=== PATIENT | male | born 1955 | race Caucasian/White ===

== ENCOUNTER 2017-11-28 10:44 | Emergency (ER) | payer OTHER, SELFPAY ==
--- NOTE | 2017-11-28 10:58 | DI.RAD.S_ITS ---
PROCEDURE: XR CHEST 2V INDICATIONS: Right-sided chest pain TECHNIQUE: 2 views of the chest were acquired. COMPARISON: [facility], CHEST 2 VIEW, 04/11/2014, 1:40. [facility], CHEST 2 VIEW, 10/28/2012, 5:59. [facility], CHEST 2 VIEW, 02/02/2010, 8:31. [facility], CHEST 2 VIEW, 01/25/2010, 5:48. [facility], CHEST 2 VIEW, 01/22/2010, 8:45. [facility], CHEST 2 VIEW, 01/20/2010, 7:36. [facility], CHEST 2 VIEW, 11/22/2009, 7:33. [facility], CHEST 1 VIEW, 06/09/2006, 14:54. FINDINGS: Surgical changes and devices: None. Lungs and pleura: No pleural effusions or pneumothorax. Lungs are clear. Mediastinum: Mediastinal contours are normal. Heart size is normal. Bones and chest wall: No suspicious bony abnormalities. Soft tissues appear unremarkable. IMPRESSION: No acute cardiopulmonary disease process. Dictated by: Megan Yeung MD, PhD on 11/28/2017 at 11:11 Approved by: Megan Yeung MD, PhD on 11/28/2017 at 11:11
[2017-11-28 11:15] VITALS: BP 111/71; PULSE 62; RESP 14; TEMP 36.7; O2SAT 98; BMI 26.7
--- NOTE | 2017-11-28 11:18 | ED.CHESTPAIN ---
HPI - Chest Pain General Chief Complaint: Chest Pain Stated Complaint: sharp pain near ribs rt side Time Seen by Provider: 11/28/17 10:58 Source: patient Mode of arrival: ambulatory Limitations: no limitations History of Present Illness HPI narrative: 62-year-old male here for evaluation of a couple days of right upper quadrant abdominal pain. Patient states that he has had pain for the past couple days. States it is worse with palpation of his lower ribs and his right upper quadrant. No trauma. No rashes. No problems with breathing. States that he did have problems sleeping last night because of it. Patient still has his gallbladder. No cough. No fevers. Related Data Home Medications Medication Instructions Recorded Confirmed Fish Oil 1 cap PO DAILY 11/28/17 11/28/17 aspirin 81 mg PO DAILY 11/28/17 11/28/17 lovastatin 20 mg PO BEDTIME 11/28/17 11/28/17 multivitamin 1 tab PO DAILY 11/28/17 11/28/17 Previous Rx's Medication Instructions Recorded levothyroxine [Synthroid] 125 mcg PO QDAY #90 tab 08/05/17 Allergies Allergy/AdvReac Type Severity Reaction Status Date / Time No Known Allergies Allergy Uncoded 08/13/17 11:59 Review of Systems Constitutional Denies fever(s) and Denies headache(s) ENT Ears, Nose, Mouth, and Throat: Denies vertigo, Denies dizziness and Denies headache(s) Cardiovascular Reports chest pain (Right lower chest), Denies irregular heart rhythm, Denies palpitations and Denies dyspnea Respiratory Denies cough, Reports pain on inspiration and Denies dyspnea Gastrointestinal Gastrointestinal: Reports abdominal pain (Right upper quadrant), Denies constipation, Denies cramping, Denies diarrhea, Denies nausea and Denies vomiting Genitourinary Denies dysuria and Denies flank pain Musculoskeletal Denies myalgias and Denies arthralgias Integumentary/Breasts Denies lesions and Denies rash Neurologic Denies confusion, Denies vertigo, Denies dizziness and Denies headache(s) Psychiatric Denies confusion Endocrine Denies palpitations Hematologic/Lymphatic Denies easy bleeding and Denies easy bruising [facility] Medical History GERD (gastroesophageal reflux disease) (Chronic Unknown) Anxiety (Chronic Unknown) Gout (Chronic Unknown) Pure hypercholesterolemia (Chronic ~11/2015) Hypothyroidism (Chronic ~06/2015) Excessive daytime sleepiness (Chronic ~10/2016) Chronic right shoulder pain (Chronic ~10/2016) Pure hypercholesterolemia (Chronic 11/20/15) History of gastroesophageal reflux (GERD) (Resolved ~2009) Surgical History Status post knee surgery (Chronic) S/P arthroscopic knee surgery (Resolved ~2015) Family History Father Diabetes mellitus Social History Smoking Status: Former smoker Tobacco: How many years used: 20 alcohol intake: current substance use type: does not use well-balanced diet: other caffeine: Yes additional social history: severe hearing loss Comment: Reviewed patient's past medical history family history surgical history and social history Exam Initial Vital Signs Initial Vital Signs: Vital Signs Temperature 98.0 F 11/28/17 11:15 Pulse Rate 62 11/28/17 11:15 Respiratory Rate 14 11/28/17 11:15 Blood Pressure 111/71 11/28/17 11:15 Pulse Oximetry 98 11/28/17 11:15 Const General: cooperative, healthy appearing, comfortable, well developed, well groomed and No acute distress Orientation: alert, awake and oriented x3 HENMT Head: normal to inspection, normocephalic and atraumatic Chest Other: Patient's pain is reproducible with palpation of the right lower chest wall over the lower portion of the ribs as they transition anteriorly and and resect with the sternum. Resp Effort & Inspection: normal respiratory effort Auscultation: clear to auscultation bilaterally Cardio Rate: regular rate Rhythm: regular rhythm GI Inspection: non-distended Palpation: soft, No firm, No guarding and tender (Right upper quadrant without rebound or guarding negative Pena sign) Back/Spine/Pelvis Back: No CVA tenderness Skin Lesions: no lesions Rashes: no rashes Neuro General: alert, awake and oriented x3 Cognition: normal cognition Speech: speech normal Gait: normal gait Motor: muscle tone normal throughout Sensory Exam: no sensory deficits noted Extrem General: normal to inspection, full ROM and capillary refill normal Psych Appearance: grossly normal and well kempt Course Orders Ordered: ED Orders 11/28/17 10:58 XR chest 2V Stat 11/28/17 11:58 US abdomen complete Stat 11/28/17 12:05 Complete Blood Count AUTO DIFF Stat Comprehensive Metabolic Panel Stat Lipase Stat Vital Signs - 8 hr 11/28/17 11:15 11/28/17 14:25 Temperature 98.0 F Pulse Rate 62 65 Respiratory Rate 14 15 Blood Pressure 111/71 111/74 Pulse Oximetry 98 100 MDM - Chest Pain Lab Data Attestation: I reviewed the patient's lab results. Result diagrams: 11/28/17 12:05 11/28/17 12:05 Lab Results 11/28/17 11/28/17 Range/Units 12:05 12:05 WBC 9.1 (4.5-11.0) X10^3/uL RBC 4.92 (4.5-5.9) X10^6/uL Hgb 15.3 (13.5-17.5) g/dL Hct 44.0 (41-53) % MCV 89.5 (80-100) fL MCH 31.1 (26-34) PG MCHC 34.7 (30-36) % RDW 13.1 (11.6-14.8) % Plt Count 223 (150-400) X10^3/uL Neut % (Auto) 63.6 (50-75) % Lymph % (Auto) 27.1 (25-40) % [place] % (Auto) 5.6 (3-14) % Eos % (Auto) 3.0 (2-4) % Baso % (Auto) 0.7 (0-2) % Neut # (Auto) 5800 (9017-1712) /uL Sodium 142 (137-145) mmol/L Potassium 4.3 (3.4-5.1) mmol/L Chloride 102 (98-107) mmol/L Carbon Dioxide 32 (22-32) mmol/L BUN 16 (9-20) mg/dL Creatinine 1.00 (0.66-1.25) mg/dL Estimated GFR > 60.0 (>60) mL/min BUN/Creatinine Ratio 16.0 (6-22) Glucose 97 (80-110) mg/dL Calcium 9.2 (8.4-10.2) mg/dL Total Bilirubin 0.5 (0.2-1.3) mg/dL AST 34 (17-59) IU/L ALT 35 (21-72) IU/L Alkaline Phosphatase 52 (38-126) U/L Total Protein 7.3 (6.3-8.2) g/dL Albumin 4.4 (3.5-5.0) g/dL Globulin 2.9 (1.7-4.1) g/dL Albumin/Globulin Ratio 1.5 (1.0-2.8) Lipase 178 (23-300) U/L Imaging Data Chest x-ray: Radiologist's impression: PROCEDURE: XR CHEST 2V INDICATIONS: Right-sided chest pain TECHNIQUE: 2 views of the chest were acquired. COMPARISON: [facility], CHEST 2 VIEW, 04/11/2014, 1:40. [facility], CHEST 2 VIEW, 10/28/2012, 5:59. [facility], CHEST 2 VIEW, 02/02/2010, 8:31. [facility], CHEST 2 VIEW, 01/25/2010, 5:48. [facility], CHEST 2 VIEW, 01/22/2010, 8:45. [facility], CHEST 2 VIEW, 01/20/2010, 7:36. [facility], CHEST 2 VIEW, 11/22/2009, 7:33. [facility], CHEST 1 VIEW, 06/09/2006, 14:54. FINDINGS: Surgical changes and devices: None. Lungs and pleura: No pleural effusions or pneumothorax. Lungs are clear. Mediastinum: Mediastinal contours are normal. Heart size is normal. Bones and chest wall: No suspicious bony abnormalities. Soft tissues appear unremarkable. IMPRESSION: No acute cardiopulmonary disease process. Dictated by: Megan Yeung MD, PhD on 11/28/2017 at 11:11 Approved by: Megan Yeung MD, PhD on 11/28/2017 at 11:11 US - abdomen: Radiologist's impression: PROCEDURE: US ABDOMEN COMPLETE INDICATIONS: Right upper quadrant pain concern for GB path TECHNIQUE: Real-time scanning was performed of the abdominal and retroperitoneal organs, with image documentation. COMPARISON: None. FINDINGS: Liver: Liver is normal in size and homogeneous in echotexture. Gallbladder: Gallbladder appears clear with normal wall thickness. Biliary ducts: Intrahepatic bile ducts are non-dilated. Extrahepatic bile duct caliber measures 5 mm. Normal is 6-7 mm or less in diameter, or 10 mm or less post-cholecystectomy. Pancreas: Visualized portions of the pancreas are sonographically normal. Tail is obscured. Spleen: Spleen is normal in size and homogeneous in echotexture. Kidneys: Kidneys are normal in size and echotexture. Right kidney measures 11.1 cm long; left kidney measures 10.7 cm long. No hydronephrosis or nephrolithiasis. No solid masses. Aorta: Visualized aorta is normal in caliber at less than 3 cm. Iliacs: Iliac vessels are obscured by bowel gas IVC: Intrahepatic inferior vena cava is patent. Miscellaneous: No free abdominal fluid. IMPRESSION: 1. No apparent hepatobiliary abnormality. 2. Kidneys showed no obstruction. 3. Tail of pancreas and iliac vessels are obscured by bowel gas. Dictated by: Lawson López M.D. on 11/28/2017 at 14:03 Approved by: Lawson López M.D. on 11/28/2017 at 14:04 [facility] Narrative Medical decision making narrative: Chest x-ray is unremarkable. Patient declined the EKG. Right upper quadrant ultrasound unremarkable. Labs unremarkable. Patient does not have a rash over the area however we did discuss the possibility of shingles. He did have reproducible tenderness over his lower ribs and right upper quadrant. I do suspect that this is a costochondritis/musculoskeletal etiology. No signs of gallbladder pathology. Hold on further workup for now. Patient was asking to go home. He was given return precautions. He expressed understanding and agreement with plan. Discharge Plan Departure Patient Disposition: Home, Self-Care Clinical Impression: Anterior chest wall pain Discharge Date/Time: 11/28/17 14:26 Interventions: ED Discharge Assessment Last Done: 11/28/17 14:25 Instructions: DI for Atypical Chest Pain Activity Restrictions/Additional Instructions: Take the anti-inflammatories likely discussed. If you start to develop a rash over this area in the next couple days you do need to be seen again. Call your primary care doctor for a follow-up. Return to the emergency department for any new or worsening symptoms Prescriptions: No Action levothyroxine [Synthroid] 125 MCG tablet 125 mcg PO QDAY Qty: 90 RF: 3 lovastatin 20 MG tablet 20 mg PO BEDTIME RF: 0 aspirin 81 mg Tablet,Delayed Release (Dr/Ec) 81 mg PO DAILY RF: 0 Fish Oil 1 cap PO DAILY RF: 0 multivitamin 1 tab PO DAILY RF: 0
--- NOTE | 2017-11-28 11:58 | DI.US.S_ITS ---
PROCEDURE: US ABDOMEN COMPLETE INDICATIONS: Right upper quadrant pain concern for GB path TECHNIQUE: Real-time scanning was performed of the abdominal and retroperitoneal organs, with image documentation. COMPARISON: None. FINDINGS: Liver: Liver is normal in size and homogeneous in echotexture. Gallbladder: Gallbladder appears clear with normal wall thickness. Biliary ducts: Intrahepatic bile ducts are non-dilated. Extrahepatic bile duct caliber measures 5 mm. Normal is 6-7 mm or less in diameter, or 10 mm or less post-cholecystectomy. Pancreas: Visualized portions of the pancreas are sonographically normal. Tail is obscured. Spleen: Spleen is normal in size and homogeneous in echotexture. Kidneys: Kidneys are normal in size and echotexture. Right kidney measures 11.1 cm long; left kidney measures 10.7 cm long. No hydronephrosis or nephrolithiasis. No solid masses. Aorta: Visualized aorta is normal in caliber at less than 3 cm. Iliacs: Iliac vessels are obscured by bowel gas IVC: Intrahepatic inferior vena cava is patent. Miscellaneous: No free abdominal fluid. IMPRESSION: 1. No apparent hepatobiliary abnormality. 2. Kidneys showed no obstruction. 3. Tail of pancreas and iliac vessels are obscured by bowel gas. Dictated by: Lawson López M.D. on 11/28/2017 at 14:03 Approved by: Lawson López M.D. on 11/28/2017 at 14:04
[2017-11-28 12:29] LABS: Alanine Aminotransferase 35 IU/L (21-72); Albumin 4.4 g/dL (3.5-5.0); Albumin Globulin Ratio 1.5 (1.0-2.8); Alkaline Phosphatase 52 U/L (38-126); Aspartate Aminotransferase 34 IU/L (17-59); Bilirubin Total 0.5 mg/dL (0.2-1.3); Blood Urea Nitrogen 16 mg/dL (9-20); Calcium 9.2 mg/dL (8.4-10.2); Carbon Dioxide 32 mmol/L (22-32); Chloride 102 mmol/L (98-107); Estimated Glomerular Filt Rate > 60.0 mL/min (>60); Globulin 2.9 g/dL (1.7-4.1); Glucose 97 mg/dL (80-110); HEMOLYSIS < 15 (0-50); Lipase 178 U/L (23-300); Potassium 4.3 mmol/L (3.4-5.1); Sodium 142 mmol/L (137-145); Total Protein 7.3 g/dL (6.3-8.2)
[2017-11-28 12:33] LABS: Add Manual Diff / Slide Review NO; Basophils Percent Auto 0.7 % (0-2); Hemoglobin 15.3 g/dL (13.5-17.5); Lymphocytes Percent Auto 27.1 % (25-40); Mean Corpuscular HGB Conc 34.7 % (30-36); Mean Corpuscular Hemoglobin 31.1 PG (26-34); Mean Corpuscular Volume 89.5 fL (80-100); Monocytes Percent Auto 5.6 % (3-14); Neutrophils Absolute Auto 5800 /uL (3000-5900); Neutrophils Percent Auto 63.6 % (50-75); Platelet Count 223 X10^3/uL (150-400); Red Blood Cell Count 4.92 X10^6/uL (4.5-5.9); Red Cell Distribution Width 13.1 % (11.6-14.8); White Blood Cell Count 9.1 X10^3/uL (4.5-11.0)
[2017-11-28 14:25] VITALS: BP 111/74; PULSE 65; RESP 15; O2SAT 100
== END 2017-11-28 14:26 | disposition home or self-care (01) ==
PROVIDERS: Emergency Provider Emergency Medicine; PCP Family Medicine
DX: R07.89 Other chest pain (principal)
CPT/HCPCS: 36591; 71046; 76700; 80053; 83690; 85025; 99282; 99284

== ENCOUNTER → 2018-12-03 13:25 | Outpatient (CLI) | payer OTHER, SELFPAY ==
[2018-12-03 13:51] LABS: BUN Creatinine Ratio 12.7 (6-22); Blood Urea Nitrogen 14 mg/dL (9-20); Calcium 8.8 mg/dL (8.4-10.2); Carbon Dioxide 29 mmol/L (22-32); Chloride 103 mmol/L (98-107); Estimated Glomerular Filt Rate > 60.0 mL/min (>60); Glucose 84 mg/dL (80-110); HEMOLYSIS < 15 (0-50); Sodium 140 mmol/L (137-145)
[2018-12-03 14:08] LABS: Free T3, Triiodothyronine Free 4.53 pg/mL (2.77-5.27); Free T4, Direct Thyroxine 1.11 ng/dL (0.78-2.19)
[2018-12-03 14:22] LABS: Prostate Specific Antigen Scrn 1.26 ng/mL (0.1-4.0); Thyroid Stimulating Hormone 5.97 uIU/mL (0.47-4.68)
[2018-12-03 18:06] LABS: Vitamin D 25 Hydroxy (D3) 31.8 ng/mL (30.0-100.0)
== END ==
PROVIDERS: PCP Student in an Organized Health Care Education/Training Program; Visit Provider Student in an Organized Health Care Education/Training Program
DX: E03.9 Hypothyroidism, unspecified (principal); E78.00 Pure hypercholesterolemia, unspecified; Z12.5 Encounter for screening for malignant neoplasm of prostate; E55.9 Vitamin D deficiency, unspecified
CPT/HCPCS: 36415; 80048; 82306; 84439; 84443; 84481; G0103

== ENCOUNTER → 2019-01-09 12:38 | Outpatient (CLI) | payer OTHER, SELFPAY ==
--- NOTE | 2019-01-09 13:24 | DI.MRI.S_ITS ---
PROCEDURE: MR KNEE LT WO CON INDICATIONS: Unspecified internal derangement of left knee. History of prior knee surgery in 1989 and 2015. TECHNIQUE: Noncontrast sagittal PD fast spin echo and T2 fast spin echo with fat saturation, sagittal 3-D FLASH with fat saturation; coronal T1 spin echo and PD fast spin echo with fat saturation, and axial PD fast spin echo with fat saturation through the knee. COMPARISON: [facility], CR, XR KNEE ARTHRITIC SERIES LT, 12/31/2018, 9:27. [facility], MR, KNEE WITHOUT CONTRAST, 05/14/2016, 8:12. FINDINGS: Image quality: Excellent. Menisci: As before, there is truncation of the free edge of the lateral meniscal body and posterior horn. Linear horizontal high T2 signal intensity traverses the anterior horn lateral meniscus, demonstrating superior articular surface extension, as before. Linear oblique high T2 signal intensity traverses the posterior horn lateral meniscus, demonstrating inferior articular surface extension, as before. There is a babatunde-meniscal cyst at the anterolateral aspect of the lateral meniscus, the largest of which is within the lateral aspect of the infrapatellar fat pad, measuring roughly 44 mm craniocaudal by 25 mm anteroposterior by 22 mm transverse. The medial meniscus is within normal limits. Cruciate ligaments: The anterior and posterior cruciate ligaments appear intact. Medial structures: The medial collateral ligament appears intact. Visualized portions of the pes anserinus tendons appear normal. No abnormal bursal fluid. Lateral structures: The lateral collateral ligament, long and short heads of the biceps femoris tendon appear intact. The popliteus tendon appears normal. Iliotibial band appears normal. Anterior structures: The quadriceps and patellar tendons appear intact. Patellar alignment is normal. No femoral trochlear dysplasia or ventral trochlear prominence. Mild edema within the infrapatellar fat pad. Bones and cartilage: No bone marrow contusions or fractures. There is mild tricompartmental periarticular osteophyte formation. Mild diffuse articular cartilage loss overlies the weightbearing aspects of the medial femoral condyle and medial tibial plateau. Moderate diffuse articular cartilage loss overlies the weightbearing aspects of the lateral femoral condyle and lateral tibial plateau. There is a superimposed full-thickness region of articular cartilage loss overlying the posterior weightbearing aspect of the lateral femoral condyle measuring 4 mm anteroposterior. Moderate cartilage loss overlies the patellar apex. Joint space: There is physiologic knee joint fluid. No Crowder's cyst. Normal appearing synovial plicae are incidentally noted. IMPRESSION: 1. No significant change in appearance of lateral meniscus. However, there is a new perimeniscal cyst adjacent to the lateral meniscus as described above, which demonstrates mild surrounding edema within the infrapatellar fat-pad. 2. Tricompartmental osteoarthritis with associated articular cartilage loss as described above. 3. Findings which would be consistent with iliotibial band syndrome in the appropriate clinical setting. Dictated by: Randell Sheppard M.D. on 01/11/2019 at 8:16 Approved by: Randell Sheppard M.D. on 01/11/2019 at 8:38
== END ==
PROVIDERS: PCP Student in an Organized Health Care Education/Training Program; Visit Provider Orthopaedic Surgery
DX: M23.92 Unspecified internal derangement of left knee (principal); M23.042 Cystic meniscus, anterior horn of lateral meniscus, left knee; M17.12 Unilateral primary osteoarthritis, left knee
CPT/HCPCS: 73721

== ENCOUNTER 2019-05-10 03:30 | Emergency (ER) | payer OTHER, SELFPAY ==
--- NOTE | 2019-05-10 03:32 | ED_ITS ---
HPI - Extremity Problem General Chief complaint: Extremity Problem,Nontraumatic Stated complaint: infected left foot sgy mar 23 Time Seen by Provider: 05/10/19 03:32 Source: patient Mode of arrival: Ambulatory Limitations: no limitations History of Present Illness HPI Narrative: 63-year-old male nonsmoker with history of hypothyroid presents with gradually worsening L foot pain for the past week or so. He denies any injury or obvious over use. He had a surgery on this foot at [facility] . He states he has had difficulty reaching his orthopedist. He denies systemic findings such as fever, chills nor nausea or vomiting. He states that it hurts when he walks on it and improves with rest. The pain is largely around the incision any claims that at times becomes red and swollen though right now it isn't all that bad. He denies any red streaks up his leg nor any calf or knee pain MD Complaint: extremity pain and extremity swelling Onset (ago): day(s) Pain Consistency: constant Location: left Quality: aching Radiation: none Relieving factors: rest Exacerbating factors: weight bearing, walking and palpation Context: recent surgery/procedure Related Data Home Medications Medication Instructions Recorded Confirmed Fish Oil 1 cap PO DAILY 11/28/17 03/24/19 aspirin 81 mg PO DAILY 11/28/17 03/24/19 multivitamin 1 tab PO DAILY 11/28/17 03/24/19 Previous Rx's Medication Instructions Recorded levothyroxine 125 mcg tablet 125 mcg PO QDAY #90 tab 09/30/18 lovastatin 20 mg tablet 20 mg PO BEDTIME #90 tab 09/30/18 Allergies Allergy/AdvReac Type Severity Reaction Status Date / Time No Known Allergies Allergy Uncoded 03/24/19 15:51 Review of Systems Constitutional Constitutional: Denies chills, Denies fatigue, Denies fever(s), Denies frequent falls, Denies lethargy and Denies weakness Eyes Eyes: Denies change in vision, Denies eye discharge, Denies irritation and Denies loss of vision ENT Ears, Nose, Mouth, and Throat: Denies change in voice, Denies dizziness, Denies neck pain, Denies sore throat and Denies throat swelling Cardiovascular Cardiovascular: Denies chest pain, Denies irregular heart rhythm, Denies lightheadedness, Denies palpitations, Denies dyspnea, Denies dyspnea on exertion and Denies orthopnea Respiratory Respiratory: Denies cough, Denies dyspnea, Denies dyspnea on exertion and Denies wheezing Gastrointestinal Gastrointestinal: Denies abdominal pain, Denies change in bowel habits, Denies diarrhea, Denies nausea and Denies vomiting Genitourinary Genitourinary: Denies hematuria, Denies flank pain, Denies urinary incontinence and Denies urinary urgency Musculoskeletal Musculoskeletal: Denies back pain, Reports limited range of motion, Denies muscle weakness, Denies neck pain, Denies numbness and Denies tingling Integumentary/Breasts Skin/Breast: Denies pruritus, Reports erythema, Denies rash and Denies wounds Neurologic Neurologic: Denies behavioral changes, Denies confusion, Denies dizziness, Denies frequent falls, Denies loss of vision, Denies numbness, Denies tingling and Denies weakness Psychiatric Psychiatric: Denies anxiety, Denies behavioral changes, Denies confusion, Denies depression, Denies homicidal ideation and Denies suicidal ideation Endocrine Endocrine: Denies fatigue, Denies flushing and Denies palpitations Hematologic/Lymphatic Hematologic/Lymphatic: Denies easy bruising Allergic/Immunologic Allergic/Immunologic: Denies urticaria, Denies throat swelling and Denies wheezing Patient History Medical History Anxiety (Chronic Unknown) Chronic right shoulder pain (Chronic ~10/2016) Excessive daytime sleepiness (Chronic ~10/2016) GERD (gastroesophageal reflux disease) (Chronic Unknown) Gout (Chronic Unknown) History of gastroesophageal reflux (GERD) (Resolved ~2009) Pure hypercholesterolemia (Chronic 11/20/15) Surgical History S/P arthroscopic knee surgery (Resolved ~2015) Status post knee surgery (Inactive) Family History Father Diabetes mellitus Social History Smoking Status: Former smoker Tobacco: How many years used: 20 Smokeless tobacco user: chewing tobacco alcohol intake: current substance use type: does not use well-balanced diet: other caffeine: Yes Type(s) of exercise: none additional social history: severe hearing loss Smoking Status: Former smoker alcohol intake frequency: a few times a month Alcohol type: beer Substance Use Type: does not use Exam Narrative Exam Narrative: GENERAL: [63] year old patient appears stated age. Well- nourished, well-developed patient, in mild distress. HEAD: Atraumatic. Normocephalic. EYES: Pupils equal round and reactive. Extraocular motions intact. No scleral icterus. No injection or drainage. ENT: Nose without bleeding, purulent drainage. Throat without erythema, tonsil lar hypertrophy or exudate. Airway patent. NECK: Trachea midline. Non tender CARDIOVASCULAR: Regular rate and rhythm without murmurs, gallops, or rubs. RESPIRATORY: Clear to auscultation. Breath sounds equal bilaterally. No wheezes, rales, or rhonchi. GASTROINTESTINAL: Abdomen soft, non-tender, nondistended. EXTREMITIES: Incision overlying 1st tarsometatarsal joint on left foot is clean, dry and intact, no erythema or dehiscence. There is no swelling, erythema, warmth or induration noted whatsoever. He does have some tenderness to palpation overlying the incision BACK: Nontender without deformity or crepitance. No flank tenderness. NEURO: AOx3. SKIN: No rash or erythema of visible areas Initial Vital Signs Initial Vital Signs: Vital Signs Temperature 98.1 F 05/10/19 03:43 Pulse Rate 61 05/10/19 03:43 Respiratory Rate 14 05/10/19 03:43 Blood Pressure 134/65 05/10/19 03:43 Pulse Oximetry 96 05/10/19 03:43 Course Orders Ordered: ED Orders 05/10/19 03:41 XR foot LT min 3V Stat 05/10/19 03:55 Basic Metabolic Panel Stat C-Reactive Protein Quant Stat Complete Blood Count AUTO DIFF Stat Erythrocyte Sedimentation Rate Stat Uric Acid Stat Discontinued Medications Ketorolac Tromethamine (Toradol) 60 mg IM NOW ONE Stop: 05/10/19 04:32 Vital Signs Vital signs: Vital Signs - 8 hr 05/10/19 03:43 Temperature 98.1 F Pulse Rate 61 Respiratory Rate 14 Blood Pressure 134/65 Pulse Oximetry 96 MDM - Extremity (Nontraumatic) Lab Data Result diagrams: 05/10/19 03:55 05/10/19 03:55 Labs: Lab Results 05/10/19 05/10/19 Range/Units 03:55 03:55 WBC 7.8 (4.5-11.0) X10^3/uL RBC 4.40 L (4.5-5.9) X10^6/uL Hgb 13.9 (13.5-17.5) g/dL Hct 38.9 L (41-53) % MCV 88.6 (80-100) fL MCH 31.6 (26-34) PG MCHC 35.7 (30-36) % RDW 12.9 (11.6-14.8) % Plt Count 202 (150-400) X10^3/uL Neut % (Auto) 53.7 (50-75) % Lymph % (Auto) 35.7 (25-40) % [place] % (Auto) 6.2 (3-14) % Eos % (Auto) 3.9 (2-4) % Baso % (Auto) 0.5 (0-2) % Neut # (Auto) 4200 (3442-8029) /uL Lymph # (Auto) 2800 (9477-6746) /uL [place] # (Auto) 500 (0-900) /uL Eos # (Auto) 300 (0-450) /uL Baso # (Auto) 0 (0-100) /uL ESR 17 H (0-15) MM/HR Sodium 140 (137-145) mmol/L Potassium 3.8 (3.4-5.1) mmol/L Chloride 102 (98-107) mmol/L Carbon Dioxide 31 (22-32) mmol/L BUN 17 (9-20) mg/dL Creatinine 1.10 (0.66-1.25) mg/dL Estimated GFR > 60.0 (>60) mL/min BUN/Creatinine Ratio 15.5 (6-22) Glucose 142 H (80-110) mg/dL Uric Acid 5.7 (3.5-8.5) mg/dL Calcium 8.9 (8.4-10.2) mg/dL C-Reactive Protein 0.7 (<1.0) mg/dL Discharge Plan Departure Patient Disposition: Home Clinical Impression: Post-operative pain Instructions: DI for Postoperative Pain Activity Restrictions/Additional Instructions: *You have been diagnosed with [postoperative pain left foot, infection considered but your exam and blood work was very reassuring *What to do: *Take medications as directed *Follow up with Dr. Nj in 2-3 days, call for an appointment. Let them know you were seen in the Emergency Department and that we ask that you be seen in follow up *Return to ER if you should have any new, worsening or concerning symptoms Prescriptions: No Action levothyroxine [Synthroid] 125 mcg tablet 125 mcg PO QDAY Qty: 90 RF: 3 lovastatin 20 mg tablet 20 mg PO BEDTIME Qty: 90 RF: 3 aspirin 81 mg Tablet,Delayed Release (Dr/Ec) 81 mg PO DAILY RF: 0 Fish Oil 1 cap PO DAILY RF: 0 multivitamin 1 tab PO DAILY RF: 0 Referrals: Naresh Price MD [Primary Care Provider] - Tyrel Nj DPM [Non-Staff] -
--- NOTE | 2019-05-10 03:41 | DI.RAD.S_ITS ---
PROCEDURE: XR FOOT LT MIN 3V INDICATIONS: foot pain TECHNIQUE: 3 views of the foot were acquired. COMPARISON: None. FINDINGS: Bones: No acute fracture is identified. There are severe degenerative changes of the left first metatarsophalangeal joint with significant loss of the joint space. There is mild hallux valgus angulation at the first metatarsophalangeal joint. There is mild periarticular osteopenia at the first metatarsophalangeal joint with moderate overlying soft tissue edema. Remainder of the visualized osseous structures appear intact. Soft tissues: No tibiotalar joint effusion. Achilles tendon appears normal. 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 Mild periarticular osteopenia and moderate overlying soft tissue swelling may be related to an inflammatory/erosive arthropathy. An infectious process not excluded if clinically appropriate. Consider further evaluation with MRI if there is high clinical suspicion for osteomyelitis. Dictated by: Bruce Arreola M.D. on 05/10/2019 at 10:58 Approved by: Bruce Arreola M.D. on 05/10/2019 at 11:02
[2019-05-10 03:43] VITALS: BP 134/65; PULSE 61; RESP 14; TEMP 36.7; O2SAT 96; BMI 27.2
[2019-05-10 04:11] LABS: Add Manual Diff / Slide Review NO; Basophils Absolute Auto 0 /uL (0-100); Basophils Percent Auto 0.5 % (0-2); Eosinophils Absolute Auto 300 /uL (0-450); Eosinophils Percent Auto 3.9 % (2-4); Hematocrit 38.9 % (41-53); Hemoglobin 13.9 g/dL (13.5-17.5); Lymphocytes Absolute Auto 2800 /uL (1100-4500); Lymphocytes Percent Auto 35.7 % (25-40); Mean Corpuscular HGB Conc 35.7 % (30-36); Mean Corpuscular Hemoglobin 31.6 PG (26-34); Mean Corpuscular Volume 88.6 fL (80-100); Monocytes Absolute Auto 500 /uL (0-900); Monocytes Percent Auto 6.2 % (3-14); Neutrophils Absolute Auto 4200 /uL (1500-7000); Neutrophils Percent Auto 53.7 % (50-75); Platelet Count 202 X10^3/uL (150-400); Red Cell Distribution Width 12.9 % (11.6-14.8); White Blood Cell Count 7.8 X10^3/uL (4.5-11.0)
[2019-05-10 04:15] LABS: BUN Creatinine Ratio 15.5 (6-22); Blood Urea Nitrogen 17 mg/dL (9-20); C-Reactive Protein Quant 0.7 mg/dL (<1.0); Calcium 8.9 mg/dL (8.4-10.2); Carbon Dioxide 31 mmol/L (22-32); Chloride 102 mmol/L (98-107); Estimated Glomerular Filt Rate > 60.0 mL/min (>60); Glucose 142 mg/dL (80-110); HEMOLYSIS < 15 (0-50); Potassium 3.8 mmol/L (3.4-5.1); Sodium 140 mmol/L (137-145); Uric Acid 5.7 mg/dL (3.5-8.5)
[2019-05-10 04:26] LABS: Erythrocyte Sedimentation Rate 17 MM/HR (0-15)
[2019-05-10] MEDS: KETOROLAC 60 MG/2 ML VIAL IM (04:57)
[2019-05-10 05:02] VITALS: BP 125/80; PULSE 63; RESP 16; O2SAT 96
== END 2019-05-10 05:02 | disposition home or self-care (01) ==
PROVIDERS: Emergency Provider Emergency Medicine; PCP Student in an Organized Health Care Education/Training Program
DX: G89.18 Other acute postprocedural pain (principal); M79.672 Pain in left foot
CPT/HCPCS: 36415; 73630; 80048; 84550; 85025; 85651; 86140; 96372; 99283; 99284; J1885

== ENCOUNTER → 2020-03-16 11:02 | Outpatient (CLI) | payer OTHER, SELFPAY ==
[2020-03-16 12:50] LABS: TSH w/ Reflex to FT4 3.82 uIU/mL (0.47-4.68)
== END ==
PROVIDERS: PCP Student in an Organized Health Care Education/Training Program; Referring Provider Student in an Organized Health Care Education/Training Program; Visit Provider Student in an Organized Health Care Education/Training Program
DX: Z12.5 Encounter for screening for malignant neoplasm of prostate (principal); E03.9 Hypothyroidism, unspecified
CPT/HCPCS: 36415; 84443; G0103

== ENCOUNTER → 2020-03-17 11:44 | Outpatient (CLI) | payer OTHER, SELFPAY ==
--- NOTE | 2020-03-17 11:45 | DI.US.S_ITS ---
PROCEDURE: US SCROTUM INDICATIONS: PAIN TECHNIQUE: Real-time scanning was performed of the scrotum and testicles, with image documentation. Color and pulse Doppler interrogation was performed of both testicles. COMPARISON: None. FINDINGS: Right: Testicle is normal in size at 4.0 x 2.5 x 2.7 cm, and homogenous in echotexture. Epididymis is normal in overall size and morphology. Mild hydrocele. No varicoceles. Overlying scrotal skin is normal in thickness. Left: Testicle is normal in size at 4.5 x 2.3 x 2.7 cm, and homogeneous in echotexture. Epididymis is normal in overall size and morphology. Mild hydrocele. No varicoceles. Overlying scrotal skin is normal in thickness. Doppler: Color and pulse Doppler demonstrate mild asymmetric increase in blood flow involving the right testis and normal blood flow within the left testis IMPRESSION: 1. Mild asymmetry with increased blood flow involving the right testis which may indicate developing orchitis. Recommend clinical correlation and follow-up. 2. Mild hydroceles bilaterally. Dictated by: Ed BURNETT Interpreted: Justice Wilson MD on 03/17/2020 at 13:02 Approved by: Justice Wilson M.D. on 03/17/2020 at 13:07
== END ==
PROVIDERS: PCP Student in an Organized Health Care Education/Training Program; Referring Provider Student in an Organized Health Care Education/Training Program; Visit Provider Student in an Organized Health Care Education/Training Program
DX: N50.82 Scrotal pain (principal); N43.3 Hydrocele, unspecified
CPT/HCPCS: 76870

== ENCOUNTER → 2020-04-15 08:16 | Outpatient (CLI) | payer OTHER, SELFPAY ==
[2020-04-15 09:48] LABS: Alanine Aminotransferase 38 IU/L (<50); Albumin 3.9 g/dL (3.5-5.0); Albumin Globulin Ratio 1.3 (1.0-2.8); Alkaline Phosphatase 46 U/L (38-126); Aspartate Aminotransferase 44 IU/L (17-59); BUN Creatinine Ratio 16.7 (6-22); Bilirubin Total 0.4 mg/dL (0.2-1.3); Blood Urea Nitrogen 17 mg/dL (9-20); Calcium 8.8 mg/dL (8.4-10.2); Carbon Dioxide 36 mmol/L (22-32); Chloride 102 mmol/L (98-107); Estimated Glomerular Filt Rate > 60.0 mL/min (>60); Glucose 90 mg/dL (80-110); HEMOLYSIS < 15 (0-50); Potassium 4.2 mmol/L (3.4-5.1); Sodium 138 mmol/L (137-145); Total Protein 6.9 g/dL (6.3-8.2)
[2020-04-15 10:18] LABS: TSH w/ Reflex to FT4 2.62 uIU/mL (0.47-4.68)
== END ==
PROVIDERS: PCP Family Medicine; Referring Provider Family Medicine; Visit Provider Family Medicine
DX: Z00.00 Encounter for general adult medical examination without abnormal findings (principal)
CPT/HCPCS: 36415; 80053; 84443

== ENCOUNTER → 2021-04-30 12:56 | Outpatient (CLI) | payer OTHER, SELFPAY ==
[2021-04-30 15:10] LABS: COVID19 -Nasal RAPID Negative (Negative)
== END ==
PROVIDERS: PCP Family Medicine; Referring Provider Physician Assistant; Visit Provider Physician Assistant
DX: Z20.822 Contact with and (suspected) exposure to COVID-19 (principal)
CPT/HCPCS: 87635

== ENCOUNTER → 2021-05-01 08:02 | Outpatient (CLI) | payer OTHER, SELFPAY ==
--- NOTE | 2021-05-01 09:21 | PM.TREADMILL ---
Cardiac Stress Test Report Referral & Results Date Patient Seen: 05/01/21 Time Patient Seen: 08:45 Requesting provider: Aristeo Mclean Indication: Stable angina Rest ECG: Normal sinus rhythm Procedure Note: Today following both written and verbal informed consent, the patient was exercised according to a standard Clem protocol. The patient exercised for a total of 12 minutes 41 seconds achieving a maximum heart rate of 132. Patient's maximum systolic blood pressure was 148. This was an estimated 12.8 METs. Slow hemodynamic response to exercise. Excellent exercise capacity (functional status similar to 40-year-old man). 1.[address] deviations in inferior leads. Infrequent PVCs at peak exercise without couplets or runs. No signs or symptoms of angina. Presenting symptom of chest pain was not reproduced with exercise. Impression: Low probability for ischemia. Casey treadmill score of 5 is correlated with 97% 5 year survival rate from cardiac causes of mortality. Exercise-induced PVCs are relatively infrequent on EKG, but could increase in frequency with more prolonged exercise. Please note: Actual ECG tracings can be found in the PACS system.
[2021-05-01 10:08] LABS: Add Manual Diff / Slide Review NO; Basophils Absolute Auto 0 /uL (0-100); Basophils Percent Auto 0.6 % (0-2); Eosinophils Absolute Auto 200 /uL (0-450); Eosinophils Percent Auto 1.8 % (2-4); Hematocrit 42.1 % (41-53); Hemoglobin 14.4 g/dL (13.5-17.5); Lymphocytes Absolute Auto 2900 /uL (1100-4500); Mean Corpuscular HGB Conc 34.3 % (30-36); Mean Corpuscular Hemoglobin 31.1 PG (26-34); Mean Corpuscular Volume 90.6 fL (80-100); Monocytes Absolute Auto 400 /uL (0-900); Monocytes Percent Auto 5.3 % (3-14); Neutrophils Absolute Auto 4900 /uL (1500-7000); Neutrophils Percent Auto 58.3 % (50-75); Platelet Count 248 X10^3/uL (150-400); Red Blood Cell Count 4.64 X10^6/uL (4.5-5.9); Red Cell Distribution Width 13.3 % (11.6-14.8); White Blood Cell Count 8.4 X10^3/uL (4.5-11.0)
[2021-05-01 10:22] LABS: Alanine Aminotransferase 26 IU/L (<50); Albumin 4.7 g/dL (3.5-5.0); Albumin Globulin Ratio 1.6 (1.0-2.8); Alkaline Phosphatase 49 U/L (38-126); Aspartate Aminotransferase 34 IU/L (17-59); Bilirubin Total 0.4 mg/dL (0.2-1.3); Blood Urea Nitrogen 18 mg/dL (9-20); Calcium 9.6 mg/dL (8.4-10.2); Carbon Dioxide 27 mmol/L (22-32); Chloride 102 mmol/L (98-107); Cholesterol 205 mg/dL (140-199); Estimated Glomerular Filt Rate > 60.0 mL/min (>60); Glucose 97 mg/dL (80-110); HDL Cholesterol 47 mg/dL (40-60); HEMOLYSIS < 15 (0-50); LDL Cholesterol Calculated 102 mg/dL (<100); Potassium 4.4 mmol/L (3.4-5.1); Sodium 140 mmol/L (137-145); Total Protein 7.7 g/dL (6.3-8.2); Triglycerides 279 mg/dL (35-150); Uric Acid 5.8 mg/dL (3.5-8.5)
[2021-05-01 10:51] LABS: Prostate Specific Antigen Scrn 1.99 ng/mL (0.1-4.0)
== END ==
PROVIDERS: PCP Family Medicine; Referring Provider Family Medicine; Visit Provider Family Medicine
DX: I20.8 Other forms of angina pectoris (principal); Z12.5 Encounter for screening for malignant neoplasm of prostate; E78.00 Pure hypercholesterolemia, unspecified; E03.9 Hypothyroidism, unspecified
CPT/HCPCS: 36415; 80053; 80061; 84550; 85025; 93016; 93017; 93018; G0103

== ENCOUNTER 2021-09-18 03:58 | Emergency (ER) | payer MEDICARE, OTHER, SELFPAY ==
[2021-09-18 04:00] VITALS: BP 117/75; PULSE 54; RESP 16; TEMP 36.4; O2SAT 95; BMI 27.3
--- NOTE | 2021-09-18 04:00 | ED_ITS ---
HPI - General Adult General Chief complaint: Ear Stated complaint: left earache Time Seen by Provider: 09/18/21 03:59 History of Present Illness HPI narrative: 65-year-old male former smoker with history of GERD and anxiety presents with a chief complaint of severe left ear pain earlier this evening that has since resolved. He states he has been having increasing frequency and perhaps severity of pain in his left ear for the past few months, but without obvious pattern. He states that when present it seems to come on gradually and becomes very intense. He denies any trauma or injury nor recent air travel or diving. He has had no fever or chills. He denies runny nose, sore throat or cough. He denies any dental pain or injury. He states when the pain is in his left ear it reaches an intensity of 8/10 and becomes even worse when pressing or laying on it. This evening his pain was present for a few hours and made it hard for him to sleep, but as stated was absent of any other symptoms. He denies any drainage or change in his ability to hear. He is not dizzy or lightheaded. He denies any jaw pain, grinding of his teeth or popping or clicking when eating or moving his draw. He is currently completely asymptomatic Related Data Home Medications Medication Instructions Recorded Confirmed Fish Oil 1 cap PO DAILY 11/28/17 08/13/21 multivitamin 1 tab PO DAILY 11/28/17 08/13/21 aspirin 81 mg tablet,delayed 81 mg PO DAILY 04/07/20 08/13/21 release magnesium oxide 500 mg capsule 1,000 mg PO DAILY cap 03/12/21 08/13/21 Previous Rx's Medication Instructions Recorded albuterol sulfate 90 mcg/actuation 2 puff INHALATION Q4-6H PRN #8.5 g 03/17/21 aerosol inhaler (ProAir HFA) lovastatin 40 mg tablet 40 mg PO BEDTIME #90 tab 05/08/21 levothyroxine 125 mcg tablet See Rx Instructions .ROUTE 08/30/21 .COMPLEX #30 tab Allergies Allergy/AdvReac Type Severity Reaction Status Date / Time No Known Drug Allergies Allergy Verified 08/13/21 15:29 Review of Systems Review of Systems Narrative: GENERAL: Denies chills, fatigue, malaise, fever, sweats. HEENT: See HPI RESPIRATORY: Denies dyspnea, cough, wheezing, hemoptysis, sputum. CARDIOVASCULAR: Denies chest pain, palpitations, orthopnea, edema, GASTROINTESTINAL: Denies nausea, vomiting, abdominal pain, diarrhea, constipation, melena. : Denies dysuria, frequency, incontinence, hematuria, urinary retention. MUSCULOSKELETAL: denies weakness, joint pain, or bony pain SKIN: Denies rash, skin lesions, or other NEUROLOGIC: Denies weakness, headache, numbness, change in speech, confusion, seizures, incoordination. PSYCHIATRIC: No concerning psychosocial issues. 12 point review of systems is negative except for those stated above Patient History Medical History Actinic keratosis Anxiety (Unknown) Chronic right shoulder pain (~10/2016) Excessive daytime sleepiness (~10/2016) GERD (gastroesophageal reflux disease) (Unknown) Gout (Unknown) History of gastroesophageal reflux (GERD) (~2009) Myalgia Pure hypercholesterolemia (11/20/15) Seborrheic keratosis Statin intolerance Well adult exam Surgical History S/P arthroscopic knee surgery (~2015) Status post knee surgery Family History Father Diabetes mellitus Stroke Social History Smoking Status: Former smoker (Quit 2006) Tobacco: How many years used: 25 Smokeless tobacco user: chewing tobacco (Former Quit 30 years ago ) alcohol intake: current (1-2 drinks per evening due to stress ) substance use type: does not use well-balanced diet: other caffeine: Yes Type(s) of exercise: none additional social history: severe hearing loss Smoking Status: Former smoker (Quit 2006) alcohol intake frequency: a few times a month Alcohol type: beer Substance Use Type: does not use Exam Narrative Exam Narrative: GEN: AOx3 and in mild distress EYES: Pupils are equal, round, and reactive to light and accommodation. Extraoccular muscles are intact bilaterally. There is no subconjunctival hemorrhage or exudate. ENT: B/L TMs flat, medeiros with normal landmarks. No effusion, erythema. No bulging or retraction. No swelling, erythema or abrasions of EAC. No FB noted. No draina ge or blood. No nasal drainage. No intraoral abnormality. No Pharyngeal swelling, erythema, or exudate. No pain with palpation of TMJ, no popping or clicking noted. CHEST: Lungs are clear to auscultation bilaterally and free of wheezes, rales, or rhonchi. Heart rate is regular rhythm, there are no murmurs, clicks, rubs, or gallops. There is no chest wall tenderness. ABD: Abdomen is soft and nontender. There is no guarding or rebound. Bowel sounds are normal in all 4 quadrants. There is no mass or organomegaly. EXT: Full painless ROM of all extremities with no loss of sensation or strength. SKIN: Warm, pink, and dry. No erythema or rash Initial Vital Signs Initial Vital Signs: Vital Signs Temperature 97.6 F 09/18/21 04:00 Pulse Rate 54 L 09/18/21 04:00 Respiratory Rate 16 09/18/21 04:00 Blood Pressure 117/75 09/18/21 04:00 Pulse Oximetry 95 09/18/21 04:00 Course Vital Signs Vital signs: Vital Signs - 8 hr 09/18/21 04:00 Temperature 97.6 F Pulse Rate 54 L Respiratory Rate 16 Blood Pressure 117/75 Pulse Oximetry 95 Medical Decision Making MDM Narrative Medical decision making narrative: Patient with resolved episode of left ear pain has very reassuring history and physical exam. He is completely asymptomatic during his visit. There is no effusion, bulging or retraction of the tympanic membrane, no erythema or opacification. No swelling, drainage, foreign body or abrasion noted and auditory canal. No pain at TMJ. There is no evidence of any diagnosis or cause that would require specific or intervention or more in-depth evaluation at this point time. We did discuss return precautions and likely utility of evaluation by Ear Nose and Throat given his increased severity and frequency symptoms. Discharge Plan Departure Patient Disposition: Home Clinical Impression: Otalgia of left ear Instructions: DI for Ear Pain-Adult Activity Restrictions/Additional Instructions: *You have been diagnosed with [episodic left ear otalgia. As we discussed, your history and physical exam are reassuring and there is no obvious abnormality on exam that would require a specific intervention at this time, however I think it is important for you to follow-up with the local ENT doctor (their contact information is below) *What to do: *Please continue to take your regular medications as directed. [ ] New medication prescriptions sent to your pharmacy: [ ] [ ] New medication written as a paper prescription [ x] No new medications given *Please follow up with one of the doctors at [facility] in 2-3 days, call for an appointment. Let them know you were seen in the Emergency Department and that we ask that you be seen in follow up. We will electronically transmit a record of today's note *Return to Emergency Department if you should have any new, worsening or concerning symptoms Prescriptions: No Action albuterol sulfate [ProAir HFA] 90 mcg/actuation HFA aerosol inhaler 2 puff inhalation Q4-6H PRN (Reason: shortness of breath or wheezing) Qty: 8.5 1RF lovastatin 40 mg tablet 40 mg PO BEDTIME Qty: 90 3RF levothyroxine 125 mcg tablet See Rx Instructions .ROUTE .COMPLEX Qty: 30 0RF Dose Instruction: take 1 tablet by mouth once daily Rx Instructions: take 1 tablet by mouth once daily aspirin 81 mg tablet,delayed release (DR/EC) 81 mg PO DAILY 0RF magnesium oxide 500 mg capsule 1,000 mg PO DAILY 0RF Fish Oil 1 cap PO DAILY 0RF multivitamin 1 tab PO DAILY 0RF Referrals: Andre Wilson MD [Physician] - Aristeo Mclean DO [Primary Care Provider] -
== END 2021-09-18 04:20 | disposition home or self-care (01) ==
PROVIDERS: Emergency Provider Emergency Medicine; PCP Family Medicine
DX: H92.02 Otalgia, left ear (principal); E03.9 Hypothyroidism, unspecified; M79.10 Myalgia, unspecified site; R53.83 Other fatigue
CPT/HCPCS: 36415; 80053; 82550; 84439; 84443; 84481; 99281

== ENCOUNTER → 2021-09-18 08:31 | Outpatient (CLI) | payer MEDICARE, OTHER, SELFPAY ==
[2021-09-18 10:42] LABS: Alanine Aminotransferase 24 IU/L (<50); Albumin 4.2 g/dL (3.5-5.0); Albumin Globulin Ratio 1.4 (1.0-2.8); Alkaline Phosphatase 46 U/L (38-126); Aspartate Aminotransferase 35 IU/L (17-59); BUN Creatinine Ratio 13.6 (6-22); Bilirubin Total 0.3 mg/dL (0.2-1.3); Blood Urea Nitrogen 17 mg/dL (9-20); Calcium 9.2 mg/dL (8.4-10.2); Carbon Dioxide 33 mmol/L (22-32); Chloride 103 mmol/L (98-107); Creatine Kinase 108 U/L (55-170); Estimated Glomerular Filt Rate > 60 mL/min (>60); Glucose 80 mg/dL (80-110); HEMOLYSIS < 15 (0-50); Potassium 4.5 mmol/L (3.4-5.1); Sodium 140 mmol/L (137-145); Total Protein 7.2 g/dL (6.3-8.2)
[2021-09-18 11:08] LABS: Free T4, Direct Thyroxine 0.91 ng/dL (0.78-2.19)
[2021-09-18 11:22] LABS: Thyroid Stimulating Hormone 12.5 uIU/mL (0.47-4.68)
== END ==
PROVIDERS: Registered Nurse; PCP Family Medicine; Referring Provider Family Medicine; Visit Provider Family Medicine
DX: M79.10 Myalgia, unspecified site (principal); R53.83 Other fatigue; E03.9 Hypothyroidism, unspecified
CPT/HCPCS: 36415; 80053; 82550; 84439; 84443; 84481

== ENCOUNTER → 2021-12-11 11:27 | Outpatient (CLI) | payer MEDICARE, OTHER, SELFPAY ==
--- NOTE | 2021-12-11 | DI.CT.S_ITS ---
PROCEDURE: CT MASTOID TEMPORAL INDICATIONS: Otalgia, left ear COMPARISON: None. TECHNIQUE: Noncontrast 0.6 mm thick axial sections acquired through the temporal bone is. Coronal images are reformatted. FINDINGS: Image quality: Excellent. RIGHT: External auditory canal: Canal has a normal appearance. Middle ear: The middle ear structures, including the ossicles and tympanic membrane, appear normal. No abnormal fluid or soft tissue density. Inner ear: Inner ear is normally formed and appears unremarkable. Facial nerve appears normal throughout is course. Mastoids: Mastoid air cells are clear. LEFT: External auditory canal: Canal has a normal appearance. Middle ear: The middle ear structures, including the ossicles and tympanic membrane, appear normal. No abnormal fluid or soft tissue density. Inner ear: Inner ear is normally formed and appears unremarkable. Facial nerve appears normal throughout its course. Mastoids: Mastoid air cells are clear. In this patient with this given history, scrutiny is given to the left auricle and it appears unremarkable. MISCELLANEOUS: Visualized surrounding bones appear unremarkable. Visualized intracranial structures, including the cerebellopontine angle cisterns, appear normal. IMPRESSION: Unremarkable study, without a cause of left ear pain identified. No abnormal middle ear fluid or soft tissue can be seen. No significant abnormal left mastoid air cell fluid can be seen. The left auricle itself is unremarkable. Dictated by: Lewis Khan M.D. on 12/11/2021 at 11:29 Approved by: Lewis Khan M.D. on 12/11/2021 at 11:30
== END ==
PROVIDERS: PCP Family Medicine; Referring Provider Physician Assistant; Visit Provider Physician Assistant
DX: H92.02 Otalgia, left ear (principal)
CPT/HCPCS: 70480

== ENCOUNTER → 2022-09-05 07:08 | Outpatient (CLI) | payer MEDICARE, OTHER, SELFPAY ==
[2022-09-05 08:31] LABS: Add Manual Diff / Slide Review NO; Basophils Absolute Auto 0 /uL (0-100); Basophils Percent Auto 0.4 % (0-2); Eosinophils Absolute Auto 200 /uL (0-450); Eosinophils Percent Auto 3.1 % (2-4); Hematocrit 40.5 % (41-53); Hemoglobin 14.2 g/dL (13.5-17.5); Lymphocytes Absolute Auto 2400 /uL (1100-4500); Lymphocytes Percent Auto 31.9 % (25-40); Mean Corpuscular HGB Conc 35.2 % (30-36); Mean Corpuscular Hemoglobin 31.4 PG (26-34); Mean Corpuscular Volume 89.3 fL (80-100); Monocytes Absolute Auto 500 /uL (0-900); Neutrophils Absolute Auto 4300 /uL (1500-7000); Neutrophils Percent Auto 57.6 % (50-75); Platelet Count 198 X10^3/uL (150-400); Red Blood Cell Count 4.53 X10^6/uL (4.5-5.9); Red Cell Distribution Width 13.2 % (11.6-14.8); White Blood Cell Count 7.4 X10^3/uL (4.5-11.0)
[2022-09-05 09:08] LABS: Alanine Aminotransferase 30 IU/L (<50); Albumin Globulin Ratio 1.4 (1.0-2.8); Alkaline Phosphatase 48 U/L (38-126); Aspartate Aminotransferase 34 IU/L (17-59); BUN Creatinine Ratio 15.7 (6-22); Bilirubin Total 0.4 mg/dL (0.2-1.3); Blood Urea Nitrogen 18 mg/dL (9-20); Calcium 8.6 mg/dL (8.4-10.2); Carbon Dioxide 31 mmol/L (22-32); Chloride 99 mmol/L (98-107); Cholesterol 168 mg/dL (140-199); Estimated Glomerular Filt Rate > 60 mL/min (>60); Globulin 2.8 g/dL (1.7-4.1); Glucose 82 mg/dL (80-110); HDL Cholesterol 40 mg/dL (40-60); HEMOLYSIS < 15 (0-50); LDL Cholesterol Calculated 88 mg/dL (<100); Potassium 4.1 mmol/L (3.4-5.1); Sodium 137 mmol/L (137-145); Total Protein 6.8 g/dL (6.3-8.2); Triglycerides 199 mg/dL (35-150)
[2022-09-05 09:40] LABS: Thyroid Stimulating Hormone 5.17 uIU/mL (0.47-4.68)
== END ==
PROVIDERS: PCP Family Medicine; Referring Provider Family Medicine; Visit Provider Family Medicine
DX: E03.9 Hypothyroidism, unspecified (principal); M10.9 Gout, unspecified; E78.00 Pure hypercholesterolemia, unspecified
CPT/HCPCS: 36415; 80053; 80061; 84439; 84443; 85025

== ENCOUNTER → 2023-02-17 16:46 | Outpatient (CLI) | payer OTHER, MEDICARE, SELFPAY ==
[2023-02-17 18:32] LABS: Free T4, Direct Thyroxine 1.37 ng/dL (0.78-2.19)
[2023-02-17 18:46] LABS: Thyroid Stimulating Hormone 2.64 uIU/mL (0.47-4.68)
== END ==
PROVIDERS: PCP Family Medicine; Referring Provider Family Medicine; Visit Provider Family Medicine
DX: E03.9 Hypothyroidism, unspecified (principal); E78.00 Pure hypercholesterolemia, unspecified; G47.9 Sleep disorder, unspecified
CPT/HCPCS: 36415; 84439; 84443

== ENCOUNTER → 2024-03-06 07:34 | Outpatient (CLI) | payer OTHER, SELFPAY ==
--- NOTE | 2024-03-06 07:37 | DI.RAD.S_ITS ---
PROCEDURE: XR LUMBAR SPINE 2-3V INDICATIONS: low back pain TECHNIQUE: Three views of the lumbar spine were acquired. COMPARISON: None. FINDINGS: Bones: Five [id number] vertebrae are present. Trace retrolisthesis L4-5 and L5-S1. Moderate multilevel disc height loss throughout the lumbar spine, most extensive at L2-3. Mild multilevel endplate spurs. No vertebral body compression fractures. No suspicious bony lesions. Soft tissues: Overlying bowel gas pattern is normal. No suspicious soft tissue calcifications. IMPRESSION: No radiographic evidence of acute lumbar spine injury. Moderate degenerative changes. Dictated by: Almita Payton M.D. on 03/06/2024 at 23:18 Approved by: Almita Payton M.D. on 03/06/2024 at 23:19
== END ==
PROVIDERS: PCP Family Medicine; Referring Provider Family Medicine; Visit Provider Family Medicine
DX: M47.816 Spondylosis without myelopathy or radiculopathy, lumbar region (principal); M54.9 Dorsalgia, unspecified
CPT/HCPCS: 72100

== ENCOUNTER 2024-05-23 10:18 | Emergency (ER) | payer OTHER, SELFPAY ==
[2024-05-23 10:28] VITALS: BP 139/67; PULSE 60; RESP 16; TEMP 36.5; O2SAT 99; BMI 26.9
--- NOTE | 2024-05-23 10:28 | DI.RAD.S_ITS ---
PROCEDURE: XR HAND LT MIN 3V INDICATIONS: LEFT HAND INJURY YESTERDAY, PAIN AND SWELLING TECHNIQUE: 3 views of the hand(s) acquired. COMPARISON: None. FINDINGS: Bones: No fractures or dislocations. Carpal bones are normally aligned. No suspicious bony lesions. Soft tissues: No suspicious soft tissue calcifications. IMPRESSION: No acute bony abnormality. Dictated by: Chel Singh M.D. on 05/23/2024 at 10:07 Approved by: Chel Singh M.D. on 05/23/2024 at 10:08
--- NOTE | 2024-05-23 11:15 | ED_ITS ---
HPI - Extremity Injury (Upper) <Maryellen Schofield PA-C - Last Filed: 05/23/24 15:11> General Chief Complaint: Extremity Injury, Upper Stated Complaint: GLF t-1, L Hand Injury Time Seen by Provider: 05/23/24 11:07 Source: patient Mode of arrival: Ambulatory History of Present Illness HPI narrative: Mr. Scales is a very pleasant 68-year-old male with a past medical history of acquired hypothyroidism, GERD, hypercholesterolemia, hypertension who presents to the emergency department for left hand pain after a ground level fall that occurred yesterday. Patient states that he was crawling/walking out of a crawl space at his home walking on a slightly angled ladder lying on the ground when he tripped and fell forward landing on his left knee and left hand. Hand was out stretched. He did not hit his head or lose consciousness but he did sustain pain to the 2nd and 3rd knuckles of his left hand. Denies any other injuries reports that his knee is not bothering him. He has not taken any medications prior to arrival and does not want any pain medication but reports he wanted to get checked out because the knuckles on the left hand are becoming swollen and red. Related Data Previous Rx's Medication Instructions Recorded lovastatin 20 mg tablet 20 mg PO BEDTIME #90 tabs 07/31/23 trazodone 100 mg tablet 100 mg PO BEDTIME #90 tabs 07/31/23 levothyroxine 137 mcg tablet See Rx Instructions .Route 03/01/24 .COMPLEX #90 tabs hydrocortisone acetate 30 mg 30 mg IA BID PRN hemorrhoids #12 ea 03/11/24 rectal suppository (Proctocort) Allergies Allergy/AdvReac Type Severity Reaction Status Date / Time No Known Drug Allergies Allergy Verified 05/23/24 10:30 Review of Systems <Maryellen Schofield PA-C - Last Filed: 05/23/24 15:11> Review of Systems ROS Unobtainable: All systems reviewed & are unremarkable except as noted in HPI and below Patient History <Maryellen Schofield PA-C - Last Filed: 05/23/24 15:11> Medical History Internal hemorrhoid Actinic keratosis due to exposure to sunlight Encounter for well adult exam without abnormal findings Sleep disorder Medicare annual wellness visit, initial Hypothyroidism Nicotine dependence Pigmented skin lesion suspicious for malignant neoplasm Stable angina Palpitations Statin intolerance Actinic keratosis Myalgia Seborrheic keratosis Well adult exam GERD (gastroesophageal reflux disease) (Unknown) Pure hypercholesterolemia (11/20/15) Anxiety (Unknown) History of gastroesophageal reflux (GERD) (~2009) Excessive daytime sleepiness (~10/2016) Chronic right shoulder pain (~10/2016) Surgical History Status post knee surgery S/P arthroscopic knee surgery (~2015) Family History Father Diabetes mellitus Stroke Social History Smoking Status: Former smoker Tobacco: How many years used: 25 Smokeless tobacco user: chewing tobacco (Former Quit 30 years ago ) alcohol intake: current (1-2 drinks per evening due to stress ) substance use type: does not use well-balanced diet: other caffeine: Yes Type(s) of exercise: none additional social history: severe hearing loss Smoking Status: Former smoker alcohol intake frequency: a few times a month Alcohol type: beer Exam <Maryellen Schofield PA-C - Last Filed: 05/23/24 15:11> Narrative Exam Narrative: GENERAL: 68 year old patient appears stated age. Well-developed patient, in no acute distress. HEAD: Atraumatic. Normocephalic. NECK: Trachea midline. Cervical ROM intact. CARDIOVASCULAR: Regular rate and rhythm. RESPIRATORY: ?Nonlabored respirations. ?Speaking in clear, full sentences. EXTREMITIES: Swelling and erythema over the left 2nd and 3rd MCP joints with very minimal tenderness. Full range of motion of the left hand, no snuffbox tenderness, no wrist pain or forearm pain. Brisk capillary refills on his fingers and strong radial pulse bilaterally. NEURO: AOx3. ?Clear speech. ?Moves all 4 extremities appropriately. Sensation intact to light touch in the distribution of the median, radial, ulnar nerves bilaterally. SKIN: No lacerations, mild swelling and erythema left 2nd 3rd MCPs. Initial Vital Signs Initial Vital Signs: Vital Signs Temperature 97.7 F 05/23/24 10:28 Pulse Rate 60 05/23/24 10:28 Respiratory Rate 16 05/23/24 10:28 Blood Pressure 139/67 05/23/24 10:28 Pulse Oximetry 99 05/23/24 10:28 Oxygen Delivery Method Room Air 05/23/24 10:28 <DO Cora Espinoza Last Filed: 05/24/24 07:43> Initial Vital Signs Initial Vital Signs: Vital Signs Temperature 97.7 F 05/23/24 10:28 Pulse Rate 60 05/23/24 10:28 Respiratory Rate 16 05/23/24 10:28 Blood Pressure 139/67 05/23/24 10:28 Pulse Oximetry 99 05/23/24 10:28 Oxygen Delivery Method Room Air 05/23/24 10:28 Course <MITZI Reid Last Filed: 05/23/24 15:11> Orders Ordered: ED Orders 05/23/24 10:28 XR hand LT min 3V Stat Vital Signs Vital signs: Vital Signs - 8 hr 05/23/24 10:28 05/23/24 11:43 Temperature 97.7 F Pulse Rate 60 56 L Respiratory Rate 16 16 Blood Pressure 139/67 117/58 L Pulse Oximetry 99 96 Oxygen Delivery Method Room Air Room Air <DO Cora Espinoza Last Filed: 05/24/24 07:43> Orders Ordered: ED Orders 05/23/24 10:28 XR hand LT min 3V Stat Vital Signs Vital signs: Vital Signs - 8 hr 05/23/24 10:28 05/23/24 11:43 Temperature 97.7 F Pulse Rate 60 56 L Respiratory Rate 16 16 Blood Pressure 139/67 117/58 L Pulse Oximetry 99 96 Oxygen Delivery Method Room Air Room Air MDM - Extremity Injury (Upper) <MITZI Reid Last Filed: 05/23/24 15:11> Medical Records Attestation: I reviewed the patient's medical records. Imaging Data left hand x-ray: Radiologist's Impression: PROCEDURE: XR HAND LT MIN 3V INDICATIONS: LEFT HAND INJURY YESTERDAY, PAIN AND SWELLING TECHNIQUE: 3 views of the hand(s) acquired. COMPARISON: None. FINDINGS: Bones: No fractures or dislocations. Carpal bones are normally aligned. No suspicious bony lesions. Soft tissues: No suspicious soft tissue calcifications. IMPRESSION: No acute bony abnormality. MDM Narrative Medical decision making narrative: 68-year-old male with a past medical history of acquired hypothyroidism, GERD, hypercholesterolemia, hypertension who presents to the emergency department for left hand pain after a ground level fall that occurred yesterday. Differential diagnosis includes but is not limited to left hand fracture, left hand hyperextension injury, sprain, strain, contusion, etc. On exam patient is in no acute distress, nontoxic-appearing, all vital signs within normal limits. He had a ground level fall landing on left outstretched hand and left bent knee yesterday. Only pain is on the left hand mainly the 2nd and 3rd MCPs. Swelling over these joints. Left hand x-ray obtained in triage which is negative for fracture. Suspect hyperextension injury of the 2nd and 3rd fingers resulting in the pain and swelling. We will place left hand into an Fish wrap and recommend rice therapy in addition ibuprofen/Tylenol. Patient declines the need for ice or pain control in the ED. Left hand neurovascularly intact. He is agreeable to the plan, follow up with PCP, stable for discharge home. Discharge Plan Departure Patient Disposition: Home Clinical Impression: Fall from ground level Sprain of hand, left Qualifiers: Encounter type: initial encounter Qualified Code(s): S63.92XA - Sprain of unspecified part of left wrist and hand, initial encounter Instructions: DI for Hand Pain Activity Restrictions/Additional Instructions: Today you were evaluated for left hand pain after a fall. Your x-rays reveal no fractures in the left hand. I suspect you hyperextended the 2nd and 3rd fingers resulting in swelling on the knuckles. Please use an Fish wrap to help support the hand in addition to rice therapy and ibuprofen/Tylenol. Follow up with the primary care doctor for further evaluation and return to the ER for any concerns. Please use RICE therapy for your pain in addition to ibuprofen/acetaminophen. Rest the painful area. Ice the area of pain/swelling for at least 15 minutes, 4x a day. Compress the area of swelling using a brace, wrap, or splint if applied. Elevate the painful or swollen extremity by supporting it above the level of the heart with pillows when sitting or laying. Please take Ibuprofen (Motrin/Advil) or Acetaminophen (Tylenol) for pain. These are available over the counter. You may take Ibuprofen 600 mg every 8 hours with food for pain. You may also take Acetaminophen 650 mg every 4-6 hours for pain. Do not exceed 3000 mg of Tylenol a day as this can cause liver damage. Do not drink alcohol with either of these medications. Please follow up with your primary care doctor within the next 2-3 days for ER follow-up. (If you do not have a PCP you can call [phone]. ?to schedule an appointment with an [facility] Primary Care Provider) IF YOU DEVELOP ANY NEW OR WORSENING SYMPTOMS, RETURN TO THE ER! Please read the attached instructions, they highlight more specific treatments and interventions for you at home. Thank you for letting me participate in your care, Maryellen Schofield PA-C Prescriptions: No Action levothyroxine 137 mcg tablet See Rx Instructions .ROUTE .COMPLEX Qty: 90 3RF Dose Instruction: take 1 tablet by mouth once daily Rx Instructions: take 1 tablet by mouth once daily hydrocortisone acetate [Proctocort] 30 mg suppository 30 mg IA BID PRN (Reason: hemorrhoids) Qty: 12 0RF lovastatin 20 mg tablet 20 mg PO BEDTIME Qty: 90 3RF trazodone 100 mg tablet 100 mg PO BEDTIME Qty: 90 1RF Referrals: Aristeo Mclean DO [Primary Care Provider] - Stand Alone Forms: Patient Portal/API/Survey ED Sign-out <Rupa Diana DO - Last Filed: 05/24/24 07:43> Cosign ED Attending Morales Attestation: I was available for consultation.
[2024-05-23 11:43] VITALS: BP 117/58; PULSE 56; RESP 16; O2SAT 96
== END 2024-05-23 11:44 | disposition home or self-care (01) ==
PROVIDERS: Emergency Provider Physician Assistant; PCP Family Medicine
DX: S63.92XA Sprain of unspecified part of left wrist and hand, initial encounter (principal); W18.30XA Fall on same level, unspecified, initial encounter
CPT/HCPCS: 73130; 99282

== ENCOUNTER → 2024-06-14 08:16 | Outpatient (CLI) | payer OTHER, SELFPAY ==
--- NOTE | 2024-06-14 08:17 | DI.RAD.S_ITS ---
PROCEDURE: XR KNEE LT 3V INDICATIONS: L knee pain TECHNIQUE: 3 views of the knee were acquired. COMPARISON: [facility], , KNEE 3V LEFT, 12/18/2015, 17:48. FINDINGS: Bones: No fractures or dislocations. No suspicious bony lesions. There is [id number] medial and mild lateral tibiofemoral compartment narrowing as well as moderate to severe patellofemoral compartment narrowing with associated osteophytosis. Soft tissues: No joint effusion. No suspicious soft tissue calcifications. 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 Dictated by: Facundo Jackson M.D. on 06/14/2024 at 22:22 Approved by: Facundo Jackson M.D. on 06/14/2024 at 22:24
[2024-06-14 10:02] LABS: Alanine Aminotransferase 28 IU/L (<50); Albumin 4.2 g/dL (3.5-5.0); Albumin Globulin Ratio 1.7 (1.0-2.8); Alkaline Phosphatase 51 U/L (38-126); Aspartate Aminotransferase 34 IU/L (17-59); BUN Creatinine Ratio 14.3 (6-22); Bilirubin Total 0.5 mg/dL (0.2-1.3); Blood Urea Nitrogen 20 mg/dL (9-20); Calcium 8.8 mg/dL (8.4-10.2); Carbon Dioxide 28 mmol/L (22-32); Chloride 102 mmol/L (98-107); Cholesterol 186 mg/dL (140-199); Estimated Glomerular Filt Rate 55 mL/min (>60); Globulin 2.5 g/dL (1.7-4.1); Glucose 103 mg/dL (80-110); HDL Cholesterol 51 mg/dL (40-60); HEMOLYSIS < 15 (0-50); LDL Cholesterol Calculated 119 mg/dL (<100); Potassium 4.4 mmol/L (3.4-5.1); Sodium 136 mmol/L (137-145); Total Protein 6.7 g/dL (6.3-8.2); Triglycerides 80 mg/dL (35-150)
[2024-06-14 10:16] LABS: Free T4, Direct Thyroxine 1.23 ng/dL (0.78-2.19)
[2024-06-14 10:30] LABS: Thyroid Stimulating Hormone 2.24 uIU/mL (0.47-4.68)
[2024-06-14 10:31] LABS: Prostate Specific Antigen Scrn 2.88 ng/mL (0.1-4.0)
== END ==
PROVIDERS: PCP Family Medicine; Referring Provider Family Medicine; Visit Provider Family Medicine
DX: M17.12 Unilateral primary osteoarthritis, left knee (principal); M25.562 Pain in left knee; M10.9 Gout, unspecified; K21.9 Gastro-esophageal reflux disease without esophagitis; E78.00 Pure hypercholesterolemia, unspecified; E03.9 Hypothyroidism, unspecified; Z12.5 Encounter for screening for malignant neoplasm of prostate
CPT/HCPCS: 36415; 73562; 80053; 80061; 84439; 84443; G0103